=== PATIENT | female | born 1965 | race Caucasian/White ===

== ENCOUNTER → 2016-10-31 | Outpatient (REF) ==
[~2016-10-31] MED LIST: ALBUTEROL0.09 MG/A1 IH; ALBUTEROL0.83 MG/ML IH; ALEVE; ATIVAN 1MG T1 MG/TAB PO; COMBIVENT INH14.7 GM IH; COUMADIN 5MG5 MG/TAB PO; DEEP SEA 45 ML45 ML NS; DIFLUCAN 100MG100 MG PO; DOXYCYCLINE 10100 MG PO; DUONEB 3 MG/3 ML3 ML IH; EXALGO8 MG PO; FENTANYL 100MCG TP; FLEXERIL10 MG PO; Flonase Nasal NS; IPRATROPIUM BROM3 M1 IH; LASIX 20MG TABL20 MG PO; LEVAQUIN 750MG750 M1 PO; LEVEMIR SQ; LEVEMIR100 U/ML SC; LOVENOX 8080 MG/0.8 SQ; LYRICA PO; LYRICA100 MG PO; NAPROSYN500 MG PO; NAPROXEN EC500 MG PO; NEURONTIN600 MG/TAB PO; NOVLOG SQ; NOVOLOG 100U100 U/M1 SC; NYSTATIN100000 U/G TOP; OXYCODONE HCL15 MG PO; OXYCODONE15 MG PO; OXYCONTIN ER40 MG PO; OXYCONTIN40 MG PO; PERCOCET 325 MG1 TA2 PO; PERCOCET 325 MG1 TAB PO; PHENERGAN 25 TA25 MG PO; PHENERGAN25 MG RC; PREDNISONE10 MG PO; PROAIR HFA0.09 MG/AC IH; PROVERA10 MG PO; PROZAC 10MG10 MG PO; PROZAC 20MG20 MG PO; SARAFEM20 M1 PO; SINGULAIR 110 MG/TAB PO; SINGULAIR10 MG PO; SYNTHROID0.075 MG/T PO; TUSS PO; VITAMIN B121000 MC2 INJ; ZYRTEC 10MG; ZYRTEC10 MG PO
[2016-10-31 09:57] LABS: THYROID STIMULATING HORMONE 2.08 uIU/mL (0.465-4.680)
== END ==
LOC: ZLAB.WCH 09:04
PROVIDERS: Internal Medicine
DX: Z01.89 Encounter for other specified special examinations (principal)

== ENCOUNTER → 2017-07-04 | Outpatient (REF) ==
[2017-07-04 16:52] LABS: THYROID STIMULATING HORMONE 2.25 uIU/mL (0.465-4.680)
== END ==
LOC: ZLAB.WCH 15:56
PROVIDERS: Internal Medicine
DX: Z01.89 Encounter for other specified special examinations (principal)

== ENCOUNTER → 2017-08-07 | Outpatient (REF) | LOC: ZLAB.WCH 18:09 | DX: Z01.89 Encounter for other specified special examinations (principal) ==

== ENCOUNTER → 2017-11-01 | Outpatient (REF) ==
[2017-11-01 19:35] LABS: THYROID STIMULATING HORMONE 2.61 uIU/mL (0.465-4.680)
== END ==
LOC: ZLAB.WCH 18:21
PROVIDERS: Internal Medicine
DX: Z01.89 Encounter for other specified special examinations (principal)

== ENCOUNTER → 2018-01-23 | Outpatient (REF) ==
[2018-01-23 09:17] LABS: IRON,SERUM 88 ug/dL (35-150)
[2018-01-23 09:26] LABS: TOTAL IRON BINDING CAPACITY 399 ug/dL (265-497)
[2018-01-23 09:53] LABS: FERRITIN 40 ng/mL (11-264)
== END ==
LOC: ZLAB.WCH 08:46
PROVIDERS: Internal Medicine
DX: Z01.89 Encounter for other specified special examinations (principal)

== ENCOUNTER → 2018-03-19 | Outpatient (REF) ==
[2018-03-19 19:19] LABS: IRON,SERUM 84 ug/dL (35-150)
[2018-03-19 19:28] LABS: TOTAL IRON BINDING CAPACITY 383 ug/dL (265-497)
[2018-03-19 19:55] LABS: FERRITIN 31 ng/mL (11-264)
== END ==
LOC: ZLAB.WCH 18:42
PROVIDERS: Internal Medicine
DX: Z01.89 Encounter for other specified special examinations (principal)

== ENCOUNTER → 2018-07-17 | Outpatient (REF) | LOC: ZLAB.WCH 09:11 | DX: Z01.89 Encounter for other specified special examinations (principal) ==

== ENCOUNTER 2019-01-21 13:00 | Outpatient (RCR) | payer MEDICARE, MEDICAID | END 2019-01-28 | disposition home or self-care (01) | LOC: WSC | DX: M17.0 Bilateral primary osteoarthritis of knee (principal); E66.8 Other obesity ==

== ENCOUNTER → 2020-10-29 | Outpatient (CLI) | payer MEDICARE, MEDICAID | LOC: ZCOL.LAB 17:14 | DX: T81.89XA Other complications of procedures, not elsewhere classified, initial encounter (principal); L97.409 Non-pressure chronic ulcer of unspecified heel and midfoot with unspecified severity ==

== ENCOUNTER → 2021-02-18 | Outpatient (CLI) | payer MEDICARE, MEDICAID | LOC: ZCOL.LAB 17:09 | DX: T81.89XA Other complications of procedures, not elsewhere classified, initial encounter (principal) ==

== ENCOUNTER → 2021-04-27 | Outpatient (CLI) | payer MEDICARE, MEDICAID | LOC: ZCOL.LAB 16:21 | DX: E13.621 Other specified diabetes mellitus with foot ulcer (principal); L97.409 Non-pressure chronic ulcer of unspecified heel and midfoot with unspecified severity; B99.9 Unspecified infectious disease ==